=== PATIENT | male | born 1980 | race American Indian/Alaskan Native ===

== ENCOUNTER 2019-09-01 00:57 | Emergency (ER) | payer SELFPAY ==
[2019-09-01] MEDS ORDERED: TETANUS,DIPH,PERTUSS(ACELL) VACCINE 0.5 ML SYRINGE IM ONE (01:45)
[2019-09-01] MEDS ORDERED: IBUPROFEN 600 MG TAB PO ONE (01:45)
[2019-09-01] MEDS ORDERED: LIDOCAINE-MPF (1%) 10 MG/1 ML VIAL 5 ML INFILTRATI ONE (01:45)
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
[2019-09-01 04:52] VITALS: BP 135/67
== END 2019-09-01 04:38 | disposition home or self-care (01) ==
LOC: ED 00:57
DX: S61.412A Laceration without foreign body of left hand, initial encounter (principal); F17.200 Nicotine dependence, unspecified, uncomplicated; X99.1XXA Assault by knife, initial encounter; Y93.89 Activity, other specified; Y92.89 Other specified places as the place of occurrence of the external cause; Y99.8 Other external cause status
CPT/HCPCS: 90471; 90715

== ENCOUNTER 2019-09-21 12:35 | Emergency (ER) | payer SELFPAY ==
--- NOTE | 2019-09-21 12:54 | Emergency Department Report ---
Suture/Staple Removal - [facility] Chief Complaint: Laceration/Recheck/Suture Stated Complaint: LFT HAND STITCHS REMOVAL Time Seen by Provider: 09/21/19 12:44 When Sutures or Teodora Placed: >14 Days Ago Wound Location: left hand ED Review of Systems ROS: Stated complaint: LFT HAND STITCHS REMOVAL Other details as noted in HPI Constitutional: denies: chills, fever Eyes: denies: eye pain, eye discharge, vision change ENT: denies: ear pain, throat pain Respiratory: denies: cough, shortness of breath, wheezing Cardiovascular: denies: chest pain, palpitations Endocrine: no symptoms reported Gastrointestinal: denies: abdominal pain, nausea, diarrhea Genitourinary: denies: urgency, dysuria Musculoskeletal: denies: back pain, joint swelling, arthralgia Skin: denies: rash, lesions Neurological: denies: headache, weakness, paresthesias Psychiatric: denies: anxiety, depression Hematological/Lymphatic: denies: easy bleeding, easy bruising ED Past Medical Hx - Past Medical History Previous Medical History?: No - Surgical History Past Surgical History?: No - Social History Smoking Status: Current Every Day Smoker Substance Use Type: Alcohol, Marijuana - Medications Home Medications: Home Medications Medication Instructions Recorded Confirmed Last Taken Type Ibuprofen [Motrin] 600 mg PO Q8H PRN #24 tablet 09/01/19 Unknown Rx Sulfamethoxazole/Trimethoprim 1 each PO Q12H #20 tablet 09/01/19 Unknown Rx [Bactrim DS TAB] Suture Removal Exam - Exam General: Vital signs noted. No distress. Alert and acting appropriately. Wound: Yes Drainage, Yes Wound Dehiscence, No Pathologic Erythema, No Tenderness, No Pus Other Systems: All other systems reviewed and are unremarkable. ED Course Vital Signs 09/21/19 12:44 Temperature 97.6 F Pulse Rate 95 H Respiratory 20 Rate Blood Pressure 121/79 O2 Sat by Pulse 98 Oximetry - Reevaluation(s) Reevaluation #1: 09/21/19 12:49 Patient is speaking in full sentences with no signs of distress noted. ED Recheck MDM - Medical Decision Making 39-year-old male that presents with suture removal. Total of 15 sutures has been removed and patient tolerted well. There is some deshine noted and drainage. Stated has not filled his antibiotics but does have his prescprition today present. Was instructed to go to [facility] as it may be free and also received [facility] card. Was instructed the importance of antibitoics. Area has been cleaned and sterile dressing applied and wound care was educated to patient. Patient was instructed to Follow-up with a primary care doctor in 3-5 days or if symptoms worsen and continue return to emergency room as soon as possible. At time of discharge, the patient does not seem toxic or ill in appearance. No acute signs of distress noted. Patient agrees to discharge tr eatment plan of care. No further questions noted by the patient. Critical care attestation.: If time is entered above; I have spent that time in minutes in the direct care of this critically ill patient, excluding procedure time. ED Disposition Clinical Impression: Infected wound, Visit for suture removal Disposition: - TO HOME OR SELFCARE Is pt being admited?: No Does the pt Need Aspirin: No Condition: Stable Instructions: Wound Infection (ED), Acute Wound Care (ED), Suture Removal (ED) Additional Instructions: Follow-up with a primary care doctor in 3-5 days or if symptoms worsen and continue return to emergency room as soon as possible. Take antibiotics as instructed to you in the ED as this is very important. Referrals: PRIMARY CAREMD [Referring] - 3-5 Days FOUZIA GRIFFIN MD [Staff Physician] - 3-5 Days
[2019-09-21 13:06] VITALS: BP 121/79
== END 2019-09-21 13:14 | disposition home or self-care (01) ==
LOC: ED 12:35
DX: T81.49XA Infection following a procedure, other surgical site, initial encounter (principal); F17.200 Nicotine dependence, unspecified, uncomplicated; F12.90 Cannabis use, unspecified, uncomplicated; Z79.899 Other long term (current) drug therapy; Z48.02 Encounter for removal of sutures
CPT/HCPCS: 99281